=== PATIENT | female | born 1950 | race Two or more races ===

== ENCOUNTER 2022-07-04 15:34 | Inpatient (IN) | payer MEDICARE, MEDICAID ==
[~2022-07-04] VITALS: Ht 167.6 cm; Wt 100.5 kg
[~2022-07-04 15:34] MED LIST: ASPI-498 OR; HYDR25TA4 PO; LEV50T PO; LOSA25TA38 PO; TRAM50TA2 PO
[2022-07-04 16:40] LABS: Hematocrit 40.8 % (36.0-46.0); Hemoglobin 13.6 g/dL (12.2-16.2); Mean Corpuscular Hemoglobin 30.8 pg (28.0-32.0); Mean Corpuscular Hgb Conc. 33.3 g/dL (32.0-36.0); Mean Corpuscular Volume 92.5 fL (80.0-100.0); Red Blood Cells 4.42 10^6/uL (4.0-5.20); White Blood Cell 11.6 10^3/uL (4.4-10.8)
[2022-07-04 16:46] LABS: Basophils % (manual) 0 (0.0-2.0)
[2022-07-04 16:48] LABS: Blast Cells 0; Myelocytes % 0; Promyelocytes % 0; Reactive Lymphocytes 0
[2022-07-04 16:56] LABS: INR 0.96 (0.9-1.15); Partial Thromboplastin Time 22.8 sec (24.6-33.4)
[2022-07-04 16:58] LABS: Albumin 3.6 g/dL (3.4-5.0); Calcium 9.2 mg/dL (8.5-10.1); Magnesium 2.5 mg/dL (1.6-2.6); Potassium 4.8 mmol/L (3.5-5.1)
[2022-07-04 17:01] LABS: Bilirubin, Total 0.3 mg/dL (0.2-1.0); Total Protein 7.1 g/dL (6.4-8.2)
[2022-07-04] MEDS ORDERED: FUROSEMIDE 40 MG/4 ML VIAL IV ONE (17:30)
[2022-07-04 17:38] LABS: Band Neutrophils % (manual) 4; Eosinophils % (manual) 2 (0-7); Lymphocytes % (manual) 17 (10.0-50.0); Metamyelocytes % 1; Monocytes % (manual) 8 (0-12)
[2022-07-04] MEDS ORDERED: NITROGLYCERIN 0.4 MG SL TAB SL PRN (23:15)
[2022-07-04] MEDS ORDERED: MAALOX PLUS or MAALOX 30 ML PO ONE (23:15)
[2022-07-04] MEDS ORDERED: ACETAMINOPHEN 325 MG TAB PO PRN (23:15)
[2022-07-04] MEDS ORDERED: ONDANSETRON HCL 4 MG/2 ML VIAL IV PRN (23:15)
[2022-07-04] MEDS ORDERED: MORPHINE SULFATE 4 MG/ML SYR/VIAL IV PRN (23:15)
[2022-07-04] MEDS ORDERED: LORazepam 0.5 MG TAB PO PRN (23:15)
[2022-07-04] MEDS ORDERED: ZOLPIDEM TARTRATE 5 MG TAB PO PRN (23:15)
[2022-07-04] MEDS ORDERED: cefTRIAXone 1GM/50ML D5W 50 ML IV SCH (23:15)
[2022-07-05] MEDS: SODIUM CHLORIDE 0.9% 1,000 ML IV SCH ×2 (01:41→23:15)
[2022-07-05] MEDS: cefTRIAXone 1GM/50ML D5W 50 ML IV SCH ×2 (01:41→22:53)
[2022-07-05 02:56] LABS: Urine Bacteria NONE SEEN /hpf (None Seen); Urine Blood Negative /uL (Negative); Urine Specific Gravity 1.012 (1.001-1.035); Urine WBC 2 /hpf (0 - 5)
[2022-07-05 05:32] LABS: BUN/Creatinine Ratio 43.5; Calcium 8.6 mg/dL (8.5-10.1)
[2022-07-05 08:57] LABS: Hematocrit 42.7 % (36.0-46.0); Hemoglobin 13.8 g/dL (12.2-16.2); Mean Corpuscular Hemoglobin 29.9 pg (28.0-32.0); Mean Corpuscular Hgb Conc. 32.3 g/dL (32.0-36.0); Mean Corpuscular Volume 92.6 fL (80.0-100.0); Red Blood Cells 4.61 10^6/uL (4.0-5.20); Red Cell Distribution Width 15.1 % (11.8-14.3); White Blood Cell 11.1 10^3/uL (4.4-10.8)
[2022-07-05 09:05] LABS: Basophils % (manual) 0 (0.0-2.0); Blast Cells 0; Metamyelocytes % 0; Myelocytes % 0; Promyelocytes % 0; Reactive Lymphocytes 0
[2022-07-05] MEDS: CARVEDILOL 3.125 MG TAB PO SCH ×2 (10:41→22:54)
[2022-07-05] MEDS: ASPirin 81 mg TAB PO SCH (10:41)
[2022-07-05] MEDS: LISINOPRIL 5 MG TAB PO SCH (10:42)
[2022-07-05] MEDS: ENOXAPARIN SOD 100 MG/1 ML SYRINGE SC SCH ×2 (10:42→22:00)
[2022-07-05] MEDS: FUROSEMIDE 40 MG/4 ML VIAL IV SCH (10:42)
[2022-07-05] MEDS: CLOPIDOGREL BISULFATE 75 MG TAB PO SCH (10:42)
[2022-07-05] MEDS: DOCUSATE SOD 100 MG CAP PO SCH (10:42)
[2022-07-05 14:27] LABS: Band Neutrophils % (manual) 8; Eosinophils % (manual) 1 (0-7); Lymphocytes % (manual) 17 (10.0-50.0); Monocytes % (manual) 8 (0-12)
[2022-07-05] MEDS: ATORVASTATIN 20 MG TAB PO SCH (22:54)
[2022-07-06] VITALS (7 sets, daily range): BP systolic 96–118; BP diastolic 53–62
[2022-07-06] MEDS: CLOPIDOGREL BISULFATE 75 MG TAB PO SCH (09:27)
[2022-07-06] MEDS: ASPirin 81 mg TAB PO SCH (09:27)
[2022-07-06] MEDS: DOCUSATE SOD 100 MG CAP PO SCH (09:29)
[2022-07-06] MEDS: CARVEDILOL 3.125 MG TAB PO SCH ×2 (09:29→22:29)
[2022-07-06] MEDS: LISINOPRIL 5 MG TAB PO SCH (09:30)
[2022-07-06] MEDS: ENOXAPARIN SOD 100 MG/1 ML SYRINGE SC SCH ×2 (09:31→22:29)
[2022-07-06] MEDS: FUROSEMIDE 40 MG/4 ML VIAL IV SCH (10:48)
[2022-07-06] MEDS: ATORVASTATIN 20 MG TAB PO SCH (22:29)
[2022-07-06] MEDS: cefTRIAXone 1GM/50ML D5W 50 ML IV SCH (22:29)
[2022-07-06] MEDS: SODIUM CHLORIDE 0.9% 1,000 ML IV SCH (23:32)
[2022-07-07] VITALS (7 sets, daily range): BP systolic 119–131; BP diastolic 51–64
[2022-07-07] MEDS: DOCUSATE SOD 100 MG CAP PO SCH (10:00)
[2022-07-07] MEDS: FUROSEMIDE 40 MG/4 ML VIAL IV SCH (10:04)
[2022-07-07] MEDS: LISINOPRIL 5 MG TAB PO SCH (10:04)
[2022-07-07] MEDS: ASPirin 81 mg TAB PO SCH (10:04)
[2022-07-07] MEDS: CLOPIDOGREL BISULFATE 75 MG TAB PO SCH (10:05)
[2022-07-07] MEDS: ENOXAPARIN SOD 100 MG/1 ML SYRINGE SC SCH ×2 (10:05→22:09)
[2022-07-07] MEDS: CARVEDILOL 3.125 MG TAB PO SCH ×2 (10:05→22:09)
[2022-07-07] MEDS: cefTRIAXone 1GM/50ML D5W 50 ML IV SCH (22:08)
[2022-07-07] MEDS: ATORVASTATIN 20 MG TAB PO SCH (22:10)
[2022-07-07] MEDS: SODIUM CHLORIDE 0.9% 1,000 ML IV SCH (23:15)
[2022-07-08 08:00] VITALS: BP 135/53
[2022-07-08 08:30] VITALS: BP 135/53
[2022-07-08] MEDS: ASPirin 81 mg TAB PO SCH (09:06)
[2022-07-08] MEDS: ENOXAPARIN SOD 100 MG/1 ML SYRINGE SC SCH (09:06)
[2022-07-08] MEDS: FUROSEMIDE 40 MG/4 ML VIAL IV SCH (09:07)
[2022-07-08] MEDS: CARVEDILOL 3.125 MG TAB PO SCH (09:07)
[2022-07-08] MEDS: DOCUSATE SOD 100 MG CAP PO SCH (09:08)
[2022-07-08] MEDS: CLOPIDOGREL BISULFATE 75 MG TAB PO SCH (09:08)
[2022-07-08] MEDS: LISINOPRIL 5 MG TAB PO SCH (09:08)
[2022-07-08] MEDS ORDERED: AZIT500T66 PO (11:36)
[2022-07-08 12:20] VITALS: BP 135/53
[2022-07-08 12:30] VITALS: BP 112/64
== END 2022-07-08 13:47 | disposition home or self-care (01) | DRG 291 ==
LOC: ER 15:34 → TELE 23:19 → TELE-WESTW 07-05 22:43
PROVIDERS: ADMIT Hospitalist; ATTEND Family Medicine
DX: I11.0 Hypertensive heart disease with heart failure (principal); I50.33 Acute on chronic diastolic (congestive) heart failure; J18.9 Pneumonia, unspecified organism; E03.9 Hypothyroidism, unspecified; M19.90 Unspecified osteoarthritis, unspecified site; Z20.822 Contact with and (suspected) exposure to COVID-19; E66.01 Morbid (severe) obesity due to excess calories; Z83.3 Family history of diabetes mellitus; Z91.119 Patient's noncompliance with dietary regimen due to unspecified reason; Z68.35 Body mass index [BMI] 35.0-35.9, adult
CPT/HCPCS: 36415; 71045; 80048; 80053; 81001; 83735; 83880; 84484; 85007; 85027; 85610; 85730; 87426; 93005; 93306; 96374; 96375; G0378; J0696; J2405